=== PATIENT | female | born 1970 | race Caucasian/White ===

== ENCOUNTER 2018-01-23 12:59 | Outpatient (CLI) | payer OTHER | END 2018-01-23 13:00 | disposition home or self-care (01) | LOC: BICMAMMO 12:59 | PROVIDERS: ATTEND Obstetrics & Gynecology | DX: Z12.31 Encounter for screening mammogram for malignant neoplasm of breast (principal); Z80.3 Family history of malignant neoplasm of breast | CPT/HCPCS: 77063; 77067 ==

== ENCOUNTER 2019-01-26 09:41 | Outpatient (CLI) | payer OTHER ==
--- NOTE | 2019-01-26 11:22 | MMO ---
Bilateral MAMMO Bilat Screen [facility]. CLINICAL HISTORY: Patient is 48 years old and is seen for screening. The patient has the following family history of breast cancer: mother, at age 50. The patient has no personal history of cancer. VIEWS: The views performed were: bilateral craniocaudal with tomosynthesis and bilateral mediolateral oblique with tomosynthesis. FILMS COMPARED: The present examination has been compared to prior imaging studies performed at [facility] on 01/06/2015, 01/09/2016, 01/10/2017 and 01/23/2018. MAMMOGRAM FINDINGS: There are scattered fibroglandular densities. New 6 mm nodule posterior mid right breast. Recommend diagnostic right breast exam. In the left breast, there are no suspicious masses, calcifications or areas of architectural distortion. IMPRESSION: FINDING IN THE RIGHT BREAST REQUIRES ADDITIONAL EVALUATION. ADDITIONAL IMAGING. THE RESULTS OF THIS EXAM WERE SENT TO THE PATIENT. ACR BI-RADS Category 0 - Incomplete: Need additional imaging evaluation. [facility] will notify the patient of the need for additional imaging services. MAMMOGRAPHY NOTE: 1. A negative mammogram report should not delay a biopsy if a dominant of clinically suspicious mass is present. 2. Approximately 10% to 15% of breast cancers are not detected by mammography. 3. Adenosis and dense breasts may obscure an underlying neoplasm.
== END 2019-01-26 09:42 | disposition home or self-care (01) ==
LOC: BICMAMMO 09:41
PROVIDERS: ATTEND Obstetrics & Gynecology
DX: Z12.31 Encounter for screening mammogram for malignant neoplasm of breast (principal); Z80.3 Family history of malignant neoplasm of breast
CPT/HCPCS: 77063; 77067

== ENCOUNTER 2019-02-02 13:35 | Outpatient (CLI) | payer OTHER ==
--- NOTE | 2019-02-02 14:45 | MMO ---
Right Breast MAMMO Unilat Diag [facility]. CLINICAL HISTORY: Patient is 48 years old and is seen for diagnostic exam. The patient has the following family history of breast cancer: mother, at age 50. The patient has no personal history of cancer. VIEWS: The views performed were: right craniocaudal spot compression with tomosynthesis; right mediolateral oblique spot compression with tomosynthesis; and right mediolateral with tomosynthesis. FILMS COMPARED: The present examination has been compared to prior imaging studies performed at [facility] on 01/10/2017, 01/23/2018, 01/26/2019 and 02/02/2019. MAMMOGRAM FINDINGS: Additional view demonstrate a well circumscribed 5-6 mm round mass approxpimately 6 cm posterior to the nipple. No corresponding US finding. IMPRESSION: FINDING IN THE RIGHT BREAST IS PROBABLY BENIGN. FOLLOW-UP IN 6 MONTHS IS RECOMMENDED. THE RESULTS OF THIS EXAM WERE SENT TO THE PATIENT. ACR BI-RADS Category 3 - Probably benign finding - short interval follow-up suggested. [facility] will notify the patient of the need for additional imaging services. MAMMOGRAPHY NOTE: 1. A negative mammogram report should not delay a biopsy if a dominant of clinically suspicious mass is present. 2. Approximately 10% to 15% of breast cancers are not detected by mammography. 3. Adenosis and dense breasts may obscure an underlying neoplasm. Reported by: MARCO A ART MD Electonically Signed: [id number]
--- NOTE | 2019-02-02 16:29 | ULT ---
RIGHT BREAST ULTRASOUND: 02/02/19 HISTORY: 5 to 6 mm mass in the right retroareolar breast noted on screening mammography. COMPARISON: None. TECHNIQUE: Targeted sonographic images of the right breast was performed. Static images are reviewed. After revi dunn static images, real time imaging is performed in the presence of the radiologist. FINDINGS: Static and real time images demonstrate normal fibroglandular tissue. No ultrasound finding correspon ding to the mammographic lesion. Note, on mammography, the lesion is well circumscribed and is round in appearance, suggesting benign process. IMPRESSION: BIRADS 3: Probably Benign Finding Initial Short-Interval Follow-Up Suggested Initial short-term follow up (usually 6-month) examination RECOMMENDATION: Six month follow-up right breast mammogram is recommend to reassess the lesion that is only seen by m karlosrabrian. POS: JUAN
== END 2019-02-02 13:36 | disposition home or self-care (01) ==
LOC: BICMAMMO 13:35
PROVIDERS: ATTEND Obstetrics & Gynecology
DX: N63.10 Unspecified lump in the right breast, unspecified quadrant (principal); Z80.3 Family history of malignant neoplasm of breast
CPT/HCPCS: G0279

== ENCOUNTER 2019-08-13 08:13 | Outpatient (CLI) | payer OTHER ==
--- NOTE | 2019-08-13 08:39 | MMO ---
Right Breast MAMMO Unilat Diag [facility]. CLINICAL HISTORY: Patient is 49 years old and is seen for diagnostic exam. The patient has the following family history of breast cancer: mother, at age 50. The patient has no personal history of cancer. VIEWS: The views performed were: right craniocaudal with tomosynthesis; right mediolateral oblique with tomosynthesis; and right mediolateral with tomosynthesis. FILMS COMPARED: The present examination has been compared to prior imaging studies performed at [facility] on 01/23/2018, 01/26/2019 and 02/02/2019. This study has been interpreted with the assistance of computer-aided detection. MAMMOGRAM FINDINGS: There are scattered fibroglandular densities. There is a stable nodule seen in the central region of the right breast. This is probably an intramammary lymph node. IMPRESSION: STABLE NODULE IN THE RIGHT BREAST IS PROBABLY BENIGN. FOLLOW-UP IN 6 MONTHS IS RECOMMENDED. THE RESULTS OF THIS EXAM WERE SENT TO THE PATIENT. ACR BI-RADS Category 3 - Probably benign finding - short interval follow-up suggested. [facility] will notify the patient of the need for additional imaging services. MAMMOGRAPHY NOTE: 1. A negative mammogram report should not delay a biopsy if a dominant of clinically suspicious mass is present. 2. Approximately 10% to 15% of breast cancers are not detected by mammography. 3. Adenosis and dense breasts may obscure an underlying neoplasm. Reported by: SHARONDA MARTINEZ MD Electonically Signed: [id number]
== END 2019-08-13 08:14 | disposition home or self-care (01) ==
LOC: BICMAMMO 08:13
PROVIDERS: ATTEND Obstetrics & Gynecology
DX: R92.2 Inconclusive mammogram (principal); N63.10 Unspecified lump in the right breast, unspecified quadrant
CPT/HCPCS: G0279

== ENCOUNTER 2020-02-11 10:23 | Outpatient (CLI) | payer OTHER ==
--- NOTE | 2020-02-11 11:13 | MMO ---
Bilateral MAMMO Bilat Diag [facility]. CLINICAL HISTORY: Patient is 49 years old and is seen for diagnostic exam. The patient has the following family history of breast cancer: mother, at age 30. The patient has no personal history of cancer. VIEWS: The views performed were: bilateral craniocaudal with tomosynthesis; bilateral mediolateral oblique with tomosynthesis; and bilateral mediolateral with tomosynthesis. FILMS COMPARED: The present examination has been compared to prior imaging studies performed at [facility] on 01/26/2019, 02/02/2019 and 08/13/2019. This study has been interpreted with the assistance of computer-aided detection. MAMMOGRAM FINDINGS: There are scattered fibroglandular densities. There are stable benign appearing calcifications seen in both breasts. The previously described right breast nodule is no longer apparent. Stable lymph node left breast. There are no suspicious masses, suspicious calcifications, or new areas of architectural distortion. IMPRESSION: THERE IS NO MAMMOGRAPHIC EVIDENCE OF MALIGNANCY. A ROUTINE FOLLOW-UP MAMMOGRAM IN 1 YEAR IS RECOMMENDED. THE RESULTS OF THIS EXAM WERE SENT TO THE PATIENT. ACR BI-RADS Category 2 - Benign finding MAMMOGRAPHY NOTE: 1. A negative mammogram report should not delay a biopsy if a dominant of clinically suspicious mass is present. 2. Approximately 10% to 15% of breast cancers are not detected by mammography. 3. Adenosis and dense breasts may obscure an underlying neoplasm. Reported by: SHARONDA MARTINEZ MD Electonically Signed: [id number]
== END 2020-02-11 10:24 | disposition home or self-care (01) ==
LOC: BICMAMMO 10:23
PROVIDERS: ATTEND Obstetrics & Gynecology
DX: R92.2 Inconclusive mammogram (principal)
CPT/HCPCS: 77066; G0279

== ENCOUNTER 2021-07-28 10:58 | Outpatient (CLI) | payer BC | END 2021-07-28 10:59 | disposition home or self-care (01) | LOC: BICMRI 10:58 | PROVIDERS: ATTEND Nurse Practitioner Family | DX: M47.22 Other spondylosis with radiculopathy, cervical region (principal); M48.02 Spinal stenosis, cervical region | CPT/HCPCS: 72141 ==

== ENCOUNTER 2022-03-10 11:06 | Outpatient (CLI) | payer BC | END 2022-03-10 11:07 | disposition home or self-care (01) | LOC: BICMAMMO 11:06 | PROVIDERS: ATTEND Nurse Practitioner | DX: Z12.31 Encounter for screening mammogram for malignant neoplasm of breast (principal); Z80.3 Family history of malignant neoplasm of breast | CPT/HCPCS: 77063; 77067 ==

== ENCOUNTER 2022-08-02 08:30 | Outpatient (CLI) | payer BC | END 2022-08-02 08:31 | disposition home or self-care (01) | LOC: ULT 08:30 | PROVIDERS: ATTEND Physician Assistant Medical | DX: R79.89 Other specified abnormal findings of blood chemistry (principal); K76.0 Fatty (change of) liver, not elsewhere classified | CPT/HCPCS: 76705 ==

== ENCOUNTER 2023-06-27 09:04 | Outpatient (CLI) | payer BC | END 2023-06-27 09:05 | disposition home or self-care (01) | LOC: BICMRI 09:04 | PROVIDERS: ATTEND Surgery | DX: Z15.01 Genetic susceptibility to malignant neoplasm of breast (principal) | CPT/HCPCS: A9577; C8908 ==

== ENCOUNTER 2023-09-30 10:47 | Outpatient (CLI) | payer BC | END 2023-09-30 10:48 | disposition home or self-care (01) | LOC: BICMRI 10:47 | PROVIDERS: ATTEND Podiatrist | DX: M76.62 Achilles tendinitis, left leg (principal); M79.672 Pain in left foot ==

== ENCOUNTER 2024-01-13 09:02 | Outpatient (CLI) | payer BC | END 2024-01-13 09:03 | disposition home or self-care (01) | LOC: ULT 09:02 | PROVIDERS: ATTEND Nurse Practitioner | DX: E04.1 Nontoxic single thyroid nodule (principal); E03.4 Atrophy of thyroid (acquired); R22.1 Localized swelling, mass and lump, neck | CPT/HCPCS: 76536 ==

== ENCOUNTER 2024-02-03 08:00 | Outpatient (CLI) | payer BC ==
[2024-02-03] MEDS ORDERED: Iopamidol 370 76% 100 ML VIAL ONE (11:35)
== END 2024-02-03 08:01 | disposition home or self-care (01) ==
LOC: CT 08:00
PROVIDERS: ATTEND Otolaryngology
DX: R22.1 Localized swelling, mass and lump, neck (principal); M85.68 Other cyst of bone, other site
CPT/HCPCS: 70491; Q9967